=== PATIENT | female | born 1945 | race Caucasian/White ===

== ENCOUNTER → 2021-02-08 | Outpatient (CLI) | payer MEDICARE ==
[~2021-02-08] MED LIST: ATOR20TA37 PO; CHOL10003 PO; CITA20TA9 PO; LEVO100T PO; SENN-204 PO; VERA40TA PO
== END | disposition home or self-care (01) ==
LOC: STAR 13:56
PROVIDERS: ATTEND Internal Medicine Gastroenterology
DX: Z01.818 Encounter for other preprocedural examination (principal); K85.90 Acute pancreatitis without necrosis or infection, unspecified; I45.10 Unspecified right bundle-branch block; Z20.822 Contact with and (suspected) exposure to COVID-19
CPT/HCPCS: 93005; U0003

== ENCOUNTER 2021-02-14 12:57 | Day surgery (SDC) | payer MEDICARE ==
[~2021-02-14] VITALS: Ht 157.5 cm; Wt 71.6 kg
[2021-02-14 13:19] VITALS: BP 169/80
[2021-02-14] MEDS ORDERED: CHLORHEXIDINE 15 ML UDC MM ONE (13:30)
[2021-02-14] MEDS ORDERED: LACTATED RINGERS 1,000 ML IV SCH (13:30)
[2021-02-14] MEDS ORDERED: LIDOCAINE-MPF 1%, 2ML INFIL ONE (13:30)
[2021-02-14] MEDS ORDERED: OMNIPAQUE 350 MG/ML, 50 ML BOTTLE ONE (15:19)
[2021-02-14] MEDS ORDERED: PROPOFOL 10 MG/ML, 50ML ONE (15:37)
[2021-02-14] MEDS ORDERED: ONDANSETRON 2MG/ML, 2ML IVPush PRN (16:00)
[2021-02-14] MEDS ORDERED: DIPHENHYDRAMINE 50 MG/ML, 1ML IVPush PRN (16:00)
[2021-02-14] MEDS ORDERED: OXYcodone 5 MG/5 ML ORAL.SOL UDC PO PRN (16:00)
[2021-02-14] MEDS ORDERED: LABETALOL 5MG/ML, 20ML IV PRN (16:00)
[2021-02-14] MEDS ORDERED: DIAZEPAM 5 MG/ML, 2ML IVPush PRN (16:00)
[2021-02-14] MEDS ORDERED: EPHEDRINE 50 MG/ML, 1ML IVPush PRN (16:00)
[2021-02-14] MEDS ORDERED: EPHEDRINE 50 MG/ML, 1ML IM PRN (16:00)
[2021-02-14] MEDS ORDERED: PROMETHAZINE 25 MG/ML, 1ML IVPush PRN (16:00)
[2021-02-14] MEDS ORDERED: FENTANYL PF 100 MCG/2ML IV PRN (16:00)
[2021-02-14] MEDS ORDERED: ONDANSETRON 2MG/ML, 2ML ONE (16:33)
== END 2021-02-14 17:50 | disposition home or self-care (01) ==
LOC: OUT 12:57
PROVIDERS: ATTEND Internal Medicine Gastroenterology
DX: K85.90 Acute pancreatitis without necrosis or infection, unspecified (principal); K29.50 Unspecified chronic gastritis without bleeding; E11.22 Type 2 diabetes mellitus with diabetic chronic kidney disease; I12.9 Hypertensive chronic kidney disease with stage 1 through stage 4 chronic kidney disease, or unspecified chronic kidney disease; N18.9 Chronic kidney disease, unspecified; E78.5 Hyperlipidemia, unspecified; E03.9 Hypothyroidism, unspecified; F32.9 Major depressive disorder, single episode, unspecified; Z79.899 Other long term (current) drug therapy; Z90.49 Acquired absence of other specified parts of digestive tract
CPT/HCPCS: 43239; 43259; 88305; J2405; J2704; J7120; Q9967